=== PATIENT | male | born 1995 | race Caucasian/White ===

== ENCOUNTER 2018-10-21 15:32 | Emergency (ER) | payer SELFPAY ==
--- NOTE | 2018-10-21 15:46 | Emergency Department Report ---
Chief Complaint: Urogenital-Male Stated Complaint: STD CHECK Time Seen by Provider: 10/21/18 15:41 - HPI History of Present Illness: This is a 23-year-old male nontoxic, well in appearance with no signs of distress presents to the ED for STD check. Patient stated that his partner called and said has STD. Patient stated he is asymptotic. Denies any penile discharge, testicular pain, or swelling. Patient denies any urinary symptoms. Patient denies any fever, chills, headache, nausea, vomiting, chest pain or shortness of breathe. denies any other symptoms or complaints. Denies any allergies or PMH. - Exam Physical Exam: no abdominal pain. no penile pain. no lesions. no urinary symptoms. MSE screening note: Focused history and physical exam performed. Due to findings the following was ordered: ED Medical Decision Making - Medical Decision Making This is a 23-year-old male that presents with nonmedical emergency complaint. Patient is just requested for a STD test. Patient denies any symptoms. Patient was approached by registration for insurance or copay but patient refused. I gave patient many different referrals to follow-up with STD concerns. Patient was instructed to Follow-up with a primary care doctor in 3-5 days or if symptoms worsen and continue return to emergency room as soon as possible. At time of discharge, the patient does not seem toxic or ill in appearance. No acute signs of distress noted. Patient agrees to discharge treatment plan of care. No further questions noted by the patient. ED Disposition for MSE Clinical Impression: Possible exposure to STD Disposition: Z- MED SCREENING EXAM-LEFT Is pt being admited?: No Does the pt Need Aspirin: No Condition: Stable Instructions: Safe Sex (ED) Additional Instructions: Follow-up with a primary care doctor, [facility] in 3-5 days or if symptoms worsen and continue return to emergency room as soon as possible. Referrals: PRIMARY MD HIEN [Referring] - 3-5 Days ERNIE VICK MD [Staff Physician] - 3-5 Days [facility] [Outside] - 3-5 Days [facility] [Outside] - 3-5 Days
--- NOTE | 2018-10-21 15:50 | Emergency Department Report ---
Blank Doc - Documentation Documentation: This is a 23-year-old male that presents with lower abdominal pain. Stated he thinks it may be an STD but pravin any urinary symptoms or penile discharge. This initial assessment/diagnostic orders/clinical plan/treatment(s) is/are subject to change based on patient's health status, clinical progression and re- assessment by fellow clinical providers in the ED. Further treatment and workup at subsequent clinical providers discretion. Patient/guardians urged not to elope from the ED as their condition may be serious if not clinically assessed and managed. Initial orders include: 1- Patient sent to [facility] for further evaluation and treatment 2- UA 3- labs
[2018-10-21 16:20] LABS: Bilirubin,Urine NEG (Negative); Blood,Urine NEG (Negative); Color,Urine Yellow (Yellow); Hyaline Casts,Urine 1 /LPF; Mucus,Urine FEW /HPF; Protein,Urine <15 mg/dL mg/dL (Negative); Urobilinogen,Urine < 2.0 mg/dL (<2.0)
[2018-10-21 17:20] LABS: Basophils % (Auto) 0.3 % (0.0-1.8); Eosinophils # (Auto) 0.1 K/mm3 (0.0-0.4); Eosinophils % (Auto) 0.5 % (0.0-4.3); Hemoglobin 17.3 gm/dl (11.8-15.2); Lymphocytes # (Auto) 1.4 K/mm3 (1.2-5.4); Lymphocytes % (Auto) 13.4 % (13.4-35.0); Mean Corpuscular HGB Conc 34 % (32-34); Mean Corpuscular Volume 90 fl (84-94); Monocytes # (Auto) 0.7 K/mm3 (0.0-0.8); Monocytes % (Auto) 6.7 % (0.0-7.3); Platelet Count 267 K/mm3 (140-440); Red Blood Count 5.68 M/mm3 (3.65-5.03); Red Cell Distribution Width 13.5 % (13.2-15.2)
[2018-10-21 17:39] LABS: Alanine Aminotransferase 42 units/L (7-56); Albumin 4.5 g/dL (3.9-5); BUN/Creatinine Ratio 12; Blood Urea Nitrogen 13 mg/dL (9-20); Calcium 9.6 mg/dL (8.4-10.2); Hemolysis Index 13
--- NOTE | 2018-10-21 19:27 | Emergency Department Report ---
ED Male HPI - General Chief complaint: Abdominal Pain Stated complaint: STD CHECK Time Seen by Provider: 10/21/18 15:41 Source: patient Mode of arrival: Ambulatory Limitations: Language Barrier - History of Present Illness Initial comments: This is a 23-year-old male who presents to ED complaining of suprapubic cramping 2 days. Patient states that he thinks it's an STD and wants to have an STD check. Patient is worried that he may have an infection bladder infection. He denies fever since shows sinus nausea vomiting/penile discharge, testicular pain or any bowel complaints - Related Data Allergies Allergy/AdvReac Type Severity Reaction Status Date / Time No Known Allergies Allergy Unverified 10/21/18 15:36 ED Review of Systems ROS: Stated complaint: STD CHECK Other details as noted in HPI Comment: All other systems reviewed and negative ED Past Medical Hx - Past Medical History Previous Medical History?: No - Surgical History Past Surgical History?: No - Social History Smoking Status: Never Smoker Substance Use Type: None ED Physical Exam - General Limitations: Language Barrier General appearance: alert, in no apparent distress - Head Head exam: Present: atraumatic, normocephalic - Eye Eye exam: Present: normal appearance - ENT ENT exam: Present: mucous membranes moist - Neck Neck exam: Present: normal inspection - Respiratory Respiratory exam: Present: normal lung sounds bilaterally. Absent: respiratory distress - Cardiovascular Cardiovascular Exam: Present: regular rate, normal rhythm. Absent: systolic murmur, diastolic murmur, rubs, gallop - GI/Abdominal GI/Abdominal exam: Present: soft, normal bowel sounds - Rectal Rectal exam: Present: deferred - Extremities Exam Extremities exam: Present: normal inspection - Back Exam Back exam: Present: normal inspection - Neurological Exam Neurological exam: Present: alert, oriented X3 - Psychiatric Psychiatric exam: Present: normal affect, normal mood - Skin Skin exam: Present: warm, dry, intact, normal color. Absent: rash ED Course Vital Signs 10/21/18 10/21/18 15:46 20:04 Temperature 98.4 F 98.9 F Pulse Rate 104 H 80 Respiratory 18 18 Rate Blood Pressure 138/89 Blood Pressure 125/84 [Left] O2 Sat by Pulse 97 100 Oximetry ED Medical Decision Making - Lab Data Result diagrams: 10/21/18 16:25 10/21/18 16:25 Laboratory Last Values WBC 10.5 K/mm3 (4.5-11.0) 10/21/18 16:25 RBC 5.68 M/mm3 (3.65-5.03) H 10/21/18 16:25 Hgb 17.3 gm/dl (11.8-15.2) H 10/21/18 16:25 Hct 51.0 % (35.5-45.6) H 10/21/18 16:25 MCV 90 fl (84-94) 10/21/18 16:25 MCH 31 pg (28-32) 10/21/18 16:25 MCHC 34 % (32-34) 10/21/18 16:25 RDW 13.5 % (13.2-15.2) 10/21/18 16:25 Plt Count 267 K/mm3 (140-440) 10/21/18 16:25 Lymph % (Auto) 13.4 % (13.4-35.0) 10/21/18 16:25 [place] % (Auto) 6.7 % (0.0-7.3) 10/21/18 16:25 Eos % (Auto) 0.5 % (0.0-4.3) 10/21/18 16:25 Baso % (Auto) 0.3 % (0.0-1.8) 10/21/18 16:25 Lymph # 1.4 K/mm3 (1.2-5.4) 10/21/18 16:25 [place] # 0.7 K/mm3 (0.0-0.8) 10/21/18 16:25 Eos # 0.1 K/mm3 (0.0-0.4) 10/21/18 16:25 Baso # 0.0 K/mm3 (0.0-0.1) 10/21/18 16:25 Seg Neutrophils % 79.1 % (40.0-70.0) H 10/21/18 16:25 Seg Neutrophils # 8.3 K/mm3 (1.8-7.7) H 10/21/18 16:25 Sodium 139 mmol/L (137-145) 10/21/18 16:25 Potassium 3.6 mmol/L (3.6-5.0) 10/21/18 16:25 Chloride 98.8 mmol/L (98-107) 10/21/18 16:25 Carbon Dioxide 27 mmol/L (22-30) 10/21/18 16:25 17 mmol/L 10/21/18 16:25 BUN 13 mg/dL (9-20) 10/21/18 16:25 1.1 mg/dL (0.8-1.5) 10/21/18 16:25 Estimated GFR > 60 ml/min 10/21/18 16:25 12 % 10/21/18 16:25 Glucose 94 mg/dL (75-100) 10/21/18 16:25 Calcium 9.6 mg/dL (8.4-10.2) 10/21/18 16:25 0.40 mg/dL (0.1-1.2) 10/21/18 16:25 AST 24 units/L (5-40) 10/21/18 16:25 ALT 42 units/L (7-56) 10/21/18 16:25 120 units/L (35-129) 10/21/18 16:25 7.8 g/dL (6.3-8.2) 10/21/18 16:25 4.5 g/dL (3.9-5) 10/21/18 16:25 1.4 % 10/21/18 16:25 16 units/L (13-60) 10/21/18 16:25 Yellow (Yellow) 10/21/18 16:01 Clear (Clear) 10/21/18 16:01 6.0 (5.0-7.0) 10/21/18 16:01 Ur Specific [place] 1.031 (1.003-1.030) H 10/21/18 16:01 <15 mg/dl mg/dL (Negative) 10/21/18 16:01 Neg mg/dL (Negative) 10/21/18 16:01 Neg mg/dL (Negative) 10/21/18 16:01 Neg (Negative) 10/21/18 16:01 Neg (Negative) 10/21/18 16:01 Neg (Negative) 10/21/18 16:01 < 2.0 mg/dL (<2.0) 10/21/18 16:01 Ur Leukocyte Esterase Neg (Negative) 10/21/18 16:01 1.0 /HPF (0.0-6.0) 10/21/18 16:01 3.0 /HPF (0.0-6.0) 10/21/18 16:01 Hyaline Casts 1 /LPF 10/21/18 16:01 Few /HPF 10/21/18 16:01 - Medical Decision Making 23-year-old male presents with a concerns of sexually-transmitted disease/urinary tract infection. All labs within normal limits, urinalysis negative. I discussed his findings with the patient. I discussed the patient that to follow up with [facility] for a STD testing. Assessment medical clinic referral given for follow-up within 3-5 days. Patient was sent home with instructions. Vital signs are normal patient is in no acute distress. Critical care attestation.: If time is entered above; I have spent that time in minutes in the direct care of this critically ill patient, excluding procedure time. ED Disposition Clinical Impression: Possible exposure to STD Disposition: DC-01 TO HOME OR SELFCARE Is pt being admited?: No Does the pt Need Aspirin: No Condition: Stable Instructions: Safe Sex (ED) Additional Instructions: Follow-up with a primary care doctor, [facility], [facility] in 3-5 days or if symptoms worsen and continue return to emergency room as soon as possible. Referrals: [facility] [Outside] - 3-5 Days [facility] [Outside] - 3-5 Days PRIMARY CAREMD [Referring] - 3-5 Days ERNIE VICK MD [Staff Physician] - 3-5 Days Forms: Work/School Release Form(ED) Time of Disposition: 19:27
[2018-10-21 20:05] VITALS: BP 125/84
== END 2018-10-21 20:06 | disposition home or self-care (01) ==
LOC: ED 15:32
DX: R10.30 Lower abdominal pain, unspecified (principal)
CPT/HCPCS: 36415; 80053; 81001; 83690; 85025; 99283